=== PATIENT | female | born 1935 | race Caucasian/White ===

== ENCOUNTER 2024-05-15 09:23 | Emergency (ER) | payer MEDICARE, OTHER ==
[~2024-05-15] VITALS: Ht 160 cm; Wt 63.0 kg
--- NOTE | 2024-05-15 09:40 | ED.PDOC ---
HPI (NEURO) HPI Comments 89 y/o F, BIBA with PMHX of dementia presents to the ED for CC of s/p syncopal episode. EMS states, patient is coming from a boarding care facility where she experienced a syncopal episode while sitting in her wheelchair having breakfast. EMS relays, according to staff patient was unresponsive for several minutes. Patient was nauseous and lethargic in route to ED, and was given 8mg Zofran. No other symptoms or PMHX obtainable at this time. Time Seen by MD: 09:30 Reviewed Notes: Nurses Notes, Art Critic Notes, Medications, Allergies Information Source: Emergency Med Personnel Mode of Arrival: EMS Severity: Moderate Headache Severity: None Timing: Minutes Duration: Since onset Prehospital treatment: None Onset: At rest Circumstances: Spontaneous Symptoms: Syncope Before: Lethargic During: Awake History of: None Associated Signs and Symptoms: Nausea, Vomiting Past Medical History PAST MEDICAL HISTORY: Unobtainable Surgical History: Unobtainable [employer] History: Unobtainable Family History Family History: Unknown Social History Smoker: Non-Smoker Alcohol: Denies ETOH Use Drugs: Denies Drug Use Lives In: Assisted Care Unable to Obtain due to: Dementia Physical Exam General Appearance: Moderate Distress HEENT: Normal ENT Inspection, Pharynx Normal, TMs Normal Neck: Full Range of Motion, Non-Tender, Normal, Normal Inspection Respiratory: Chest Non-Tender, Lungs Clear, No Accessory Muscle Use, No Respiratory Distress, Normal Breath Sounds Cardiovascular: No Edema, No JVD, No Murmur, No Gallop, Normal Peripheral Pulses, Regular Rate/Rhythm Breast Exam: Deferred Gastrointestinal: No Organomegaly, Non Tender, No Pulsatile Mass, Normal Bowel Sounds, Soft Genitalia: Deferred Pelvic: Deferred Rectal: Deferred Extremities: No pedal edema Musculoskeletal : Apperance: Normal Neurologic: Disoriented Cerebellar Function: NOT DONE Reflexes: NOT DONE Skin: Dry, Normal Color, Warm Peripheral Pulses: 3+ Radial (R), 3+ Radial (L) Lymphatic: No Adenopathy Was a procedure done? Was a procedure done?: No Differential Diagnosis (SZ) Seizure: Psychogenic Seizure, Closed Head Injury, CVA/TIA General Weakness: Dehydration, Hypotension X-Ray, Labs, Meds, VS Vital Signs Date Time Temp Pulse Resp B/P (MAP) Pulse Ox O2 Delivery O2 Flow Rate FiO2 05/15/24 12:00 82 16 107/83 (91) 98 05/15/24 09:50 85 16 95 Nasal Cannula* 2 28 05/15/24 09:50 98.0 83 16 115/65 (82) 96 98.0 05/15/24 09:29 86 05/15/24 09:23 97.0 87 18 119/73 (88) 98 97.0 Lab Test 05/15/24 11:39 Range/Units White Blood Count 9.9 4.4-10.8 10^3/uL Red Blood Count 4.25 4.0-5.20 10^6/uL Hemoglobin 12.9 12.2-16.2 g/dL Hematocrit 38.8 36.0-46.0 % Mean Corpuscular Volume 91.4 80.0-100.0 fL Mean Corpuscular Hemoglobin 30.3 28.0-32.0 pg Mean Corpuscular Hemoglobin Concent 33.2 32.0-36.0 g/dL Red Cell Distribution Width 14.8 H 11.8-14.3 % Platelet Count 158 140-450 10^3/uL Mean Platelet Volume 8.3 6.9-10.8 fL Neutrophils (%) (Auto) 81.9 H 37.0-80.0 % Lymphocytes (%) (Auto) 9.4 L 10.0-50.0 % Monocytes (%) (Auto) 8.1 0.0-12.0 % Eosinophils (%) (Auto) 0.3 0.0-7.0 % Basophils (%) (Auto) 0.3 0.0-2.0 % Neutrophils # (Auto) 8.1 1.6-8.6 10 ^3/uL Lymphocytes # (Auto) 0.9 0.4-5.4 10 ^3/uL Monocytes # (Auto) 0.8 0-1.3 10 ^3/uL Eosinophils # (Auto) 0 0-0.8 10 ^3/uL Basophils # (Auto) 0 0-0.2 10 ^3/uL Nucleated Red Blood Cells 0.0 % Sodium Level 140 136-145 mmol/L Potassium Level 3.6 3.5-5.1 mmol/L Chloride Level 103 98-107 mmol/L Carbon Dioxide Level 29 20-31 mmol/L Anion Gap 8 5-15 Blood Urea Nitrogen 17 9-23 mg/dL Creatinine 1.27 H 0.550-1.02 mg/dL Glomerular Filtration Rate Calc 40 >90 mL/min BUN/Creatinine Ratio 13.4 10.0-20.0 Serum Glucose 122 H 74-106 mg/dL Calcium Level 9.4 8.7-10.4 mg/dL Troponin I High Sensitivity 6 </=34 ng/L Current Medications Medications (Trade) Dose Ordered Sig/Ele Route Start Time Stop Time Status Last Admin Ceftriaxone Sodium 50 ml @ 100 mls/hr ONCE ONCE IV 05/15/24 11:00 05/15/24 11:29 DC 05/15/24 11:11 Methylprednisolone Sodium Succinate (Solu Medrol) 125 mg ONCE ONCE IV 05/15/24 11:00 05/15/24 11:01 DC 05/15/24 11:11 [place] [id number] Ph: [phone] DIAGNOSTIC IMAGING Diagnostic Imaging Report : [id number] Signed PATIENT: BEATRIS SANCHES DIANEACCT: [id number] UNIT: [id number] : 1935 LOC: ER ROOM / BED: / AGE / SEX: 89 / F ADM STATUS: REG ER SERVICE [id number] ORDERING PHYSICIAN: DARA ELAINE MD PROCEDURE(s): CXRP - CHEST PORTABLE REASON: sob ORDER NUMBER(s): [id number], ACCESSION NUMBER(s): [id number] EXAM: XY CHEST PORTABLE Indication: sob Technique: Single frontal view of the chest was obtained Comparison: None FINDINGS: Lines and Tubes: None Lungs: No focal consolidation. Pleura: No effusion. No pneumothorax. Cardiomediastinal contours: Unremarkable. Atherosclerotic vascular calcifications of the thoracic aorta are noted. Bones: No acute osseous abnormality. IMPRESSION: No acute cardiopulmonary disease. ATED BY: BERTHA MENDOZA MD DICTATED DATE/TIME: 05/15/24 1016 SIGNED BY: BERTHA MENDOZA MD SIGNED DATE/TIME: 05/15/24 1016 CC: Patient slightly confused pain Blood pressure within normal limits. Her saturation was low in the field for which she was placed on oxygen. Possible pneumonitis. Possible pneumonia. Continues to need more oxygen to maintain saturation. Was given steroid. Was given Rocephin. Was given azithromycin. Waiting for family. Continue cardiac monitoring. Time of 1ST Reevaluation: 10:00 Reevaluation 1ST: Unchanged Patient Education/Counseling: Diagnosis, Treatment Family Education/Counseling: No Family Present Departure 1 Departure Time of Disposition: 10:51 Impression: Primary Impression: Acute respiratory distress Additional Impression: Pneumonitis Disposition: ADMITTED INPATIENT Admit to: Med Surg Condition: Guarded Critical Care Note Critical Care Time?: Yes (90 min-critical care time only) Critical care comment: Placed on oxygen Stability Stability form required: No Heart Score Heart Score: Heart Score Response (Comments) Value History Slightly Suspicious 0 EKG Normal 0 Age >65 2 Risk Factors >3 or Hx ASHD 2 Troponin Normal limit 0 Total 4 I personally scribed for DARA ELAINE MD ([email or web address]) on 05/15/24 at 09:40. Electronically submitted by Manda Lopez ([email or web address]). I personally scribed for DARA ELAINE MD ([email or web address]) on 05/15/24 at 11:22. Electronically submitted by Manda Lopez [email or web address]). DARA ELAINE MD May 15, 2024 09:40
[2024-05-15 09:50] VITALS: PULSE 85; RESP 16; TEMP 98; O2SAT 95
--- NOTE | 2024-05-15 10:19 | DVH ---
EXAM: XY CHEST PORTABLE Indication: sob Technique: Single frontal view of the chest was obtained Comparison: None FINDINGS: Lines and Tubes: None Lungs: No focal consolidation. Pleura: No effusion. No pneumothorax. Cardiomediastinal contours: Unremarkable. Atherosclerotic vascular calcifications of the thoracic ao rta are noted. Bones: No acute osseous abnormality. IMPRESSION: No acute cardiopulmonary disease.
[2024-05-15] MEDS: methylPREDNISolone SOD SUCC 125 MG/2 ML VL IV ONE (11:11)
[2024-05-15] MEDS: cefTRIAXone 1GM/50ML D5W 50 ML IV ONE (11:11)
[2024-05-15 12:06] LABS: Basophils # (auto) 0 10 ^3/uL (0-0.2); Basophils % (auto) 0.3 % (0.0-2.0); Eosinophils # (auto) 0 10 ^3/uL (0-0.8); Eosinophils % (auto) 0.3 % (0.0-7.0); Hematocrit 38.8 % (36.0-46.0); Hemoglobin 12.9 g/dL (12.2-16.2); Lymphocytes # (auto) 0.9 10 ^3/uL (0.4-5.4); Lymphocytes % (auto) 9.4 % (10.0-50.0); Mean Corpuscular Hemoglobin 30.3 pg (28.0-32.0); Mean Corpuscular Hgb Conc. 33.2 g/dL (32.0-36.0); Mean Corpuscular Volume 91.4 fL (80.0-100.0); Monocytes # (auto) 0.8 10 ^3/uL (0-1.3); Monocytes % (auto) 8.1 % (0.0-12.0); Neutrophils # (auto) 8.1 10 ^3/uL (1.6-8.6); Neutrophils % (auto) 81.9 % (37.0-80.0); Platelet Count (auto) 158 10^3/uL (140-450); Red Blood Cells 4.25 10^6/uL (4.0-5.20); Red Cell Distribution Width 14.8 % (11.8-14.3); White Blood Cell 9.9 10^3/uL (4.4-10.8)
[2024-05-15 12:07] LABS: Chloride 103 mmol/L (98-107); Potassium 3.6 mmol/L (3.5-5.1); Sodium 140 mmol/L (136-145)
[2024-05-15 12:08] LABS: Anion Gap 8 (5-15); Carbon Dioxide 29 mmol/L (20-31)
[2024-05-15 12:09] LABS: Calcium 9.4 mg/dL (8.7-10.4)
[2024-05-15 12:13] LABS: BUN/Creatinine Ratio 13.4 (10.0-20.0); Blood Urea Nitrogen 17 mg/dL (9-23)
[2024-05-15 12:14] LABS: Glucose 122 mg/dL (74-106)
[2024-05-15 14:00] VITALS: BP 117/90; PULSE 69; RESP 16; O2SAT 95
--- NOTE | 2024-05-16 07:23 | ECG ---
[facility] Test Date: 2024-05-15 Test Time: 09:29:58 Pat Name: BEATRIS SANCHES Department: ER Room: Gender: F Principal Engineer: : 1935 Requested By: DARA ELAINE Order Number: [id number] Reading MD: Filiberto Lee Measurements Intervals [place] Rate: 86 P: 65 W[place]: 180 QRS: 62 QRSD: 94 T: 54 QT: 404 QTc: 484 Interpretive Statements Sinus rhythm Electronically Signed On 05-17-2024 17:32:53 PDT by Filiberto Lee Please click the below link to view image of tracing.
== END 2024-05-15 14:50 | disposition left against medical advice (07) ==
LOC: ER 09:23 → EDBD 09:23 → ER 14:50
DX: J98.4 Other disorders of lung (principal); R06.03 Acute respiratory distress; R11.0 Nausea
CPT/HCPCS: 36415; 71045; 80048; 84484; 85025; 93005; 96365; 96375; 99285; J0696; J2919; 99291; 99292